=== PATIENT | female | born 1950 | race Caucasian/White ===

== ENCOUNTER 2018-11-18 04:26 | Observation (INO) | payer OTHER ==
--- OUTSIDE RECORDS SUMMARY | 2018-11-18 04:29 | XMS REPORT | Clinical Summary ---
:1950 Author Organization [facility] Address [address] [place] [address] Care Team Providers Name Role Phone Curt Jackson MD Primary Care Provider Allergies Active Allergy Reactions Severity Noted Date Comments Erythromycin 12/15/2017 Medications Not on file Active Problems Not on file Encounters Date Type Specialty Care Team Description 12/18/2017 Office Visit General Surgery Jim Bobby, Gastroesophageal reflux MD disease without esophagitis (Primary Dx) after 11/17/2017 Family History Medical History Relation Name Comments Breast cancer Mother Heart disease Mother Hypertension Mother Breast cancer Sister Crohn's disease Sister Relation Name Status Comments Mother Sister Social History Tobacco Use Types Packs/Day Years Used Date Former Smoker Smokeless Tobacco: Never Used Alcohol Use Drinks/Week oz/Week Comments Yes Sex Assigned at Date Recorded Not on file Job Start Date Occupation Industry Not on file Not on file Not on file Travel History Travel Start Travel End No recent travel history available. Last Filed Vital Signs Vital Sign Reading Time Taken Blood Pressure 127/69 12/18/2017 10:10 AM CDT Pulse 53 12/18/2017 10:10 AM CDT Temperature 36.7 C (98 F) 12/18/2017 10:10 AM CDT Respiratory Rate 16 12/18/2017 10:10 AM CDT Oxygen Saturation 98% 12/18/2017 10:10 AM CDT Inhaled Oxygen Concentration - - Weight 47.9 kg (105 lb 9.6 oz) 12/18/2017 10:10 AM CDT Height 154.9 cm (5' 1") 12/18/2017 10:10 AM CDT Body Mass Index 19.95 12/18/2017 10:10 AM CDT Plan of Treatment Health Maintenance Due Date Last Done Comments BREAST CANCER SCREENING 11/23/2001 COLON CANCER SCREENING 11/23/2001 SHINGLES VACCINES (#1) 11/23/2001 65+ PNEUMOCOCCAL VACCINE (1 of 2 - PCV13) 11/23/2016 PNEUMOCOCCAL POLYSACCHARIDE VACCINE AGE 65 AND OVER 11/23/2016 INFLUENZA VACCINE 02/07/2019 Results Not on fileafter 11/17/2017 Insurance Payer Benefit Plan / Group Subscriber ID Type Phone Address AETNA MEDICARE AETNA MEDICARE HMO/PPO [facility] xxxxxxxx HMO (Home) [facility] [phone] [place] [address] (Work) Advance Directives Patient has advance care planning documents on file. For more information, please contact:[id number] [facility] [address]
[2018-11-18 05:07] LABS: Absolute Lymphocytes (CBC) 2.5 K/uL (0.7-4.9); Absolute Monocytes 0.6 K/uL (0.1-1.3); Absolute Neutrophil 2.8 K/uL (1.8-8.0); Basophils % 1.6 % (0-1.3); Eosinophils % 4.6 % (0-4.4); Hematocrit 43.4 % (36.0-45.0); Monocytes % 9.3 % (3.3-12.3); RBC Red Blood Cell Count 4.93 M/uL (3.86-4.86)
[2018-11-18 05:09] LABS: Protime INR 0.95
[2018-11-18] MEDS ORDERED: ASPIRIN 81 MG CHEWABLE TABLET ONE (05:11)
[2018-11-18 05:26] LABS: ALT/SGPT 25 U/L (12-78); AST/SGOT 18 U/L (15-37); Albumin 4.1 g/dL (3.4-5.0); Alkaline Phosphatase 75 U/L (45-117); BUN Blood Urea Nitrogen 17 mg/dL (7-18); Bicarbonate 26 mmol/L (21-32); Bilirubin Direct 0.1 mg/dL (0-0.2); Bilirubin Total 0.6 mg/dL (0.2-1.0); Glucose Level 96 mg/dL (74-106); Magnesium 2.2 mg/dL (1.8-2.4); NT PRO-BNP 54 pg/mL (<125); Potassium 3.8 mmol/L (3.5-5.1); Protein, Total 7.2 g/dL (6.4-8.2); Sodium Level 143 mmol/L (136-145); Troponin (Emerg Dept Use Only) < 0.02 ng/mL (0.0-0.045)
--- NOTE | 2018-11-18 06:28 | ER ---
Nurse's Notes [facility] Name: Renee Paige Age: 67 yrs Sex: Female : 1950 Arrival Date: 11/18/2018 Time: 04:27 Bed 20 Private MD: Ang Jackson C Diagnosis: Chest pain, unspecified;Cardiac Dysryhtmia, Presentation: 11/18 04:30 Acuity: YON 3 fc 04:30 Presenting complaint: Patient states: that she was woken by left shoulder pain at 0400. fc Positive for nausea but denies any vomiting or shortness of breath. Transition of care: patient was not received from another setting of care. Onset of symptoms was November 18, 2018 at 04:00. Risk Assessment: Do you want to hurt yourself or someone else? Patient reports no desire to harm self or others. Initial Sepsis Screen: Does the patient meet any 2 criteria? No. Patient's initial sepsis screen is negative. Does the patient have a suspected source of infection? No. Patient's initial sepsis screen is negative. Care prior to arrival: Medication(s) given: ASA, 81 mg, x 1, at 0415. 04:30 Method Of Arrival: Ambulatory fc Historical: - Allergies: 04:47 Zithromax; fc - Home Meds: 04:47 amlodipine 2.5 mg tab 1 tab once daily [Active]; Lunesta 1 mg oral tab 0.5 tabs qhs prn fc [Active]; - PMHx: 04:47 Hypertension; hiatal hernia; fc - PSHx: 04:47 Hysterectomy; Tonsillectomy; fc - Immunization history:: Last tetanus immunization: unknown. - Social history:: Smoking status: Patient/guardian denies using tobacco, Patient uses alcohol, but reports only rare drinking. Patient/guardian denies using street drugs. - Ebola Screening: : Patient negative for fever greater than or equal to 101.5 degrees Fahrenheit, and additional compatible Ebola Virus Disease symptoms Patient denies exposure to infectious person Patient denies travel to an Ebola-affected area in the 21 days before illness onset. Screenin:30 Abuse screen: Denies threats or abuse. Nutritional screening: No deficits noted. fc Tuberculosis screening: No symptoms or risk factors identified. Fall Risk None identified. Assessment: 04:35 General: Appears in no apparent distress. comfortable, Behavior is calm, cooperative, rr5 appropriate for age. 04:35 Pain: Complains of pain in left shoulder Pain radiates to left arm Pain currently is 4 rr5 out of 10 on a pain scale. Quality of pain is described as aching, Pain began suddenly, Is intermittent. Neuro: Level of Consciousness is awake, alert, obeys commands, Oriented to person, place, time, situation, Appropriate for age. Cardiovascular: Reports left shoulder to left arm pain started at 0400H Capillary refill < 3 seconds Patient's skin is warm and dry. Respiratory: Airway is patent Respiratory effort is even, unlabored, Respiratory pattern is regular, symmetrical. GI: Abdomen is flat, Reports nausea. : No signs and/or symptoms were reported regarding the genitourinary system. EENT: No signs and/or symptoms were reported regarding the EENT system. Derm: Skin is intact, Skin temperature is warm. Musculoskeletal: Capillary refill < 3 seconds, Range of motion: intact in all extremities. 05:05 Reassessment: Patient appears in no apparent distress at this time. Patient is alert, rr5 oriented x 3, equal unlabored respirations, skin warm/dry/pink. Patient denies pain at this time. 06:05 Reassessment: Patient appears in no apparent distress at this time. Patient is alert, rr5 oriented x 3, equal unlabored respirations, skin warm/dry/pink. no complaints made awaiting for review. 06:59 Reassessment: Patient appears in no apparent distress at this time. Patient is alert, rr5 oriented x 3, equal unlabored respirations, skin warm/dry/pink. ED provider advised for admission and agreed for the plan of care. no complaints made. Patient denies pain at this time. Patient states feeling better. Patient states symptoms have improved. 07:22 Reassessment: Patient appears in no apparent distress at this time. Patient and/or em family updated on plan of care and expected duration. Pain level reassessed. Patient is alert, oriented x 3, equal unlabored respirations, skin warm/dry/pink. ordered heart healthy diet per protocol, notified household chores about room status, will assign room shortly. Vital Signs: 04:30 BP 154 / 91; Pulse 58; Resp 18; Temp 97.9(O); Pulse Ox 100% on R/A; Weight 48.99 kg fc (R); Height 5 ft. 2 in. (157.48 cm) (R); Pain 4/10; 05:00 BP 132 / 73; Pulse 60; Resp 17; Pulse Ox 99% on R/A; Pain 0/10; rr5 06:00 BP 135 / 77; Pulse 59; Resp 16; Pulse Ox 99% on R/A; rr5 06:40 BP 125 / 68; Pulse 61; Resp 13; Temp 97.9; Pulse Ox 99% on R/A; rr5 07:30 BP 123 / 59; Pulse 75; Resp 18; Pulse Ox 99% on R/A; Pain 0/10; em 04:30 Body Mass Index 19.75 (48.99 kg, 157.48 cm) ED Course: 04:27 Patient arrived in ED. am2 04:27 Ang Jackson MD is Private Physician. am2 04:30 Arm band placed on Patient placed in an exam room, on a stretcher. fc 04:30 Patient has correct armband on for positive identification. Placed in gown. Bed in low fc position. Call light in reach. gum rolling machine tender on. Pulse ox on. NIBP on. 04:30 No provider procedures requiring assistance completed. fc 04:34 Remy Mcmahan MD is Attending Physician. kdr 04:38 EKG done, by ED staff, reviewed by Remy Mcmahan MD. fc 04:42 Triage completed. fc 04:42 Adrián Friend, ELYSE is Primary Nurse. rr5 04:50 Inserted saline lock: 20 gauge in right antecubital area, using aseptic technique. rr5 Blood collected. 04:50 Initial lab(s) drawn, by or, sent to lab. Patient maintains SpO2 saturation greater rr5 than 95% on room air. 05:39 X-ray completed. Portable x-ray completed in exam room. Patient tolerated procedure mh1 well. 05:39 XRAY Chest (1 view) In Process Unspecified. EDMS 06:25 Elie Guo MD is Hospitalizing Provider. kdr 08:31 Patient admitted, IV remains in place. em Administered Medications: 05:01 Drug: Aspirin Chewable Tablet 243 mg Route: PO; rr5 06:58 Follow up: Response: No adverse reaction rr5 Outcome: 06:27 Decision to Hospitalize by Provider. kdr 08:31 Admitted to Tele accompanied by tech, via wheelchair, room 204, with chart, Report em called to ELYSE Loaiza 08:31 Condition: stable 08:31 Instructed on the need for admit, Demonstrated understanding of instructions. 08:34 Patient left the ED. em Signatures: Dispatcher [employer] Remy Kimball MD MD kdr Jhoana Hernandez 1 So Colmenares RN RN Jerome Amezcua LVN [employer] SPACE SALESPERSON Karina Zamora 2 Adrián Friend, RN RN rr5 Corrections: (The following items were deleted from the chart) 04:44 04:43 Abuse screen: Denies threats or abuse. Denies injuries from another. rr5 rr5 04:44 04:43 Nutritional screening: No deficits noted. rr5 rr5 04:44 04:43 Tuberculosis screening: No symptoms or risk factors identified. rr5 rr5 04:44 04:43 Fall Risk IV access (20 points). Total Cunha Fall Scale indicates No Risk (0-24 rr5 pts). rr5
--- NOTE | 2018-11-18 06:28 | EDPHYS ---
Physician Documentation [facility] Name: Renee Paige Age: 67 yrs Sex: Female : 1950 Arrival Date: 11/18/2018 Time: 04:27 Bed 20 Private MD: Ang Jackson C ED Physician Remy Mcmahan HPI: 11/18 04:51 This 67 yrs old Female presents to ER via Ambulatory with complaints of Chest kdr Pain > 30 y/o, Shoulder Pain. 04:51 The patient or guardian reports chest pain that is located primarily in the Left kdr shoulder and upper arm down to the elbow. Onset: suddenly, at 04:00. The pain radiates to the left shoulder. Associated signs and symptoms: Pertinent positives: nausea, Pertinent negatives: abdominal pain, cough, diaphoresis, shortness of breath, syncope. The chest pain is described as aching, burning, dull. Duration: The patient or guardian reports a single episode, that is now resolved. Modifying factors: The symptoms are alleviated by nothing. the symptoms are aggravated by nothing. Severity of pain: At its worst the pain was mild moderate just prior to arrival, in the emergency department the pain has resolved. The patient has not experienced similar symptoms in the past. 04:51 The patient has not recently seen a physician. kdr Historical: - Allergies: 04:47 Zithromax; fc - Home Meds: 04:47 amlodipine 2.5 mg tab 1 tab once daily [Active]; Lunesta 1 mg oral tab 0.5 tabs qhs prn fc [Active]; - PMHx: 04:47 Hypertension; hiatal hernia; fc - PSHx: 04:47 Hysterectomy; Tonsillectomy; fc - Immunization history:: Last tetanus immunization: unknown. - Social history:: Smoking status: Patient/guardian denies using tobacco, Patient uses alcohol, but reports only rare drinking. Patient/guardian denies using street drugs. - Ebola Screening: : Patient negative for fever greater than or equal to 101.5 degrees Fahrenheit, and additional compatible Ebola Virus Disease symptoms Patient denies exposure to infectious person Patient denies travel to an Ebola-affected area in the 21 days before illness onset. ROS: 04:51 Constitutional: Negative for fever, chills, and weight loss, Eyes: Negative for injury, kdr pain, redness, and discharge, ENT: Negative for injury, pain, and discharge, Neck: Negative for injury, pain, and swelling, Cardiovascular: Negative for chest pain, palpitations, and edema, Respiratory: Negative for shortness of breath, cough, wheezing, and pleuritic chest pain, Abdomen/GI: Negative for abdominal pain, nausea, vomiting, diarrhea, and constipation, Back: Negative for injury and pain, : Negative for injury, bleeding, discharge, and swelling, Skin: Negative for injury, rash, and discoloration, Neuro: Negative for headache, weakness, numbness, tingling, and seizure activity. Psych: Negative for depression, anxiety, suicide ideation, homicidal ideation, and hallucinations, Allergy/Immunology: Negative for hives, rash, and allergies, Endocrine: Negative for neck swelling, polydipsia, polyuria, polyphagia, and marked weight changes, Hematologic/Lymphatic: Negative for swollen nodes, abnormal bleeding, and unusual bruising. 04:51 MS/extremity: Positive for pain, warmth, of the anterior aspect of left shoulder, left bicep, posterior aspect of left shoulder and left tricep, Negative for acute changes, injury or acute deformity, abrasion, decreased range of motion, paresthesias. Exam: 04:51 Constitutional: This is a well developed, well nourished patient who is awake, alert, kdr and in no acute distress. Head/Face: Normocephalic, atraumatic. Eyes: Pupils equal round and reactive to light, extra-ocular motions intact. Lids and lashes normal. Conjunctiva and sclera are non-icteric and not injected. Cornea within normal limits. Periorbital areas with no swelling, redness, or edema. Neck: Trachea midline, no thyromegaly or masses palpated, and no cervical lymphadenopathy. Supple, full range of motion without nuchal rigidity, or vertebral point tenderness. No Meningismus. Chest/axilla: Normal chest wall appearance and motion. Nontender with no deformity. No lesions are appreciated. Respiratory: Lungs have equal breath sounds bilaterally, clear to auscultation and percussion. No rales, rhonchi or wheezes noted. No increased work of breathing, no retractions or nasal flaring. Abdomen/GI: Soft, non-tender, with normal bowel sounds. No distension or tympany. No guarding or rebound. No evidence of tenderness throughout. Back: No spinal tenderness. No costovertebral tenderness. Full range of motion. Skin: Warm, dry with normal turgor. Normal color with no rashes, no lesions, and no evidence of cellulitis. MS/ Extremity: Pulses equal, no cyanosis. Neurovascular intact. Full, normal range of motion. Neuro: Awake and alert, GCS 15, oriented to person, place, time, and situation. Cranial nerves II-XII grossly intact. Motor strength 5/5 in all extremities. Sensory grossly intact. Cerebellar exam normal. Normal gait. Psych: Awake, alert, with orientation to person, place and time. Behavior, mood, and affect are within normal limits. 04:51 Cardiovascular: Rate: bradycardic, Rhythm: irregular, Pulses: no pulse deficits are appreciated, Heart sounds: normal, Edema: is not appreciated, JVD: Vital Signs: 04:30 BP 154 / 91; Pulse 58; Resp 18; Temp 97.9(O); Pulse Ox 100% on R/A; Weight 48.99 kg fc (R); Height 5 ft. 2 in. (157.48 cm) (R); Pain 4/10; 05:00 BP 132 / 73; Pulse 60; Resp 17; Pulse Ox 99% on R/A; Pain 0/10; rr5 06:00 BP 135 / 77; Pulse 59; Resp 16; Pulse Ox 99% on R/A; rr5 06:40 BP 125 / 68; Pulse 61; Resp 13; Temp 97.9; Pulse Ox 99% on R/A; rr5 07:30 BP 123 / 59; Pulse 75; Resp 18; Pulse Ox 99% on R/A; Pain 0/10; em 04:30 Body Mass Index 19.75 (48.99 kg, 157.48 cm) MDM: 04:51 Data reviewed: vital signs, nurses notes. kdr 06:27 Patient medically screened. kdr 11/18 04:48 Order name: Basic Metabolic Panel; Complete Time: 05:54 fc 11/18 04:48 Order name: CBC with Diff; Complete Time: 05:54 11/18 04:48 Order name: LFT's; Complete Time: 05:54 11/18 04:48 Order name: Magnesium; Complete Time: 05:54 11/18 04:48 Order name: NT PRO-BNP; Complete Time: 05:54 11/18 04:48 Order name: PT-INR; Complete Time: 05:54 11/18 04:48 Order name: Troponin (emerg Dept Use Only); Complete Time: 05:54 11/18 06:35 Order name: Basic Metabolic Panel [facility] 11/18 06:35 Order name: Basic Metabolic Panel [facility] 11/18 06:35 Order name: CBC with Automated Diff [facility] 11/18 06:35 Order name: CBC with Automated Diff [facility] 11/18 06:35 Order name: Troponin I [facility] 11/18 06:35 Order name: Troponin I [facility] 11/18 06:35 Order name: Troponin I [facility] 11/18 04:48 Order name: XRAY Chest (1 view) 11/18 04:48 Order name: EKG; Complete Time: 04:49 11/18 04:48 Order name: Cardiac monitoring; Complete Time: 04:49 11/18 04:48 Order name: EKG - Nurse/Tech; Complete Time: 04:49 11/18 04:48 Order name: IV Saline Lock; Complete Time: 04:56 11/18 04:48 Order name: Labs collected and sent; Complete Time: 04:56 11/18 04:48 Order name: O2 Per Protocol; Complete Time: 04:56 11/18 04:48 Order name: O2 Sat Monitoring; Complete Time: 04:56 11/18 06:35 Order name: CONS Physician Consult [facility] 11/18 06:35 Order name: Regular [facility] 11/18 06:35 Order name: EKG Electrocardiogram [facility] 11/18 06:35 Order name: EKG Electrocardiogram [facility] 11/18 06:35 Order name: EKG Electrocardiogram [facility] 11/18 07:06 Order name: Diet Heart Healthy; Complete Time: 07:06 em Administered Medications: 05:01 Drug: Aspirin Chewable Tablet 243 mg Route: PO; rr5 06:58 Follow up: Response: No adverse reaction rr5 Disposition: 11/18/18 06:27 Hospitalization ordered by Elie Guo for Inpatient Admission. Preliminary diagnosis are Chest pain, unspecified, Cardiac Dysryhtmia,. - Bed requested for Telemetry/MedSurg (Inpatient). - Status is Inpatient Admission. em - Condition is Fair. - Problem is new. - Symptoms have improved. UTI on Admission? No Signatures: Dispatcher [employer] [facility] Meghana Rdoas, RN RN Remy Menchaca MD MD kdr Chretien, Felicia, RN RN Jerome Amezcua, PERSONAL COMPUTER NETWORK ANALYST PERSONAL COMPUTER NETWORK ANALYST em Adrián Friend, RN RN rr5 Corrections: (The following items were deleted from the chart) 07:59 06:27 Hospitalization Ordered by Elie Guo MD for Inpatient Admission. dw Preliminary diagnosis is Chest pain, unspecified; Cardiac Dysryhtmia,. Bed requested for Telemetry/MedSurg (Inpatient). Status is Inpatient Admission. Condition is Fair. Problem is new. Symptoms have improved. UTI on Admission? No. kdr 08:13 06:35 EKG Electrocardiogram ordered. [facility] 08:34 07:59 11/18/2018 06:27 Hospitalization Ordered by Elie Guo MD for Inpatient em Admission. Preliminary diagnosis is Chest pain, unspecified; Cardiac Dysryhtmia,. Bed requested for Telemetry/MedSurg (Inpatient). Status is Inpatient Admission. Condition is Fair. Problem is new. Symptoms have improved. UTI on Admission? No. dw
[2018-11-18] MEDS ORDERED: ACETAMINOPHEN 500 MG TAB PO PRN (06:31)
[2018-11-18] MEDS ORDERED: ONDANSETRON 4 MG/2 ML VIAL IV PRN (06:31)
--- NOTE | 2018-11-18 08:00 | RAD REPORT ---
EXAM DESCRIPTION: RAD - Chest Single View - 11/18/2018 5:39 am CLINICAL HISTORY: Shoulder pain, nausea, shortness of breath, hypertension COMPARISON: May 2015 TECHNIQUE: AP portable chest image was obtained 0536 hours . FINDINGS: Mild chronic interstitial lung pattern is present similar to comparison. No superimposed m ass, consolidation or failure finding. Heart and vasculature are normal. No measurable pleural effusi on and no pneumothorax. No acute bony abnormality seen. No acute aortic findings suspected. IMPRESSION: No acute cardiopulmonary process. No significant change from comparison.
[2018-11-18 08:42] VITALS: O2SAT 99
--- NOTE | 2018-11-18 08:46 | EKG ---
Test Date: 2018-11-18 Test Time: 04:38:52 Metal Tester: RR MEASUREMENT RESULTS: Intervals: Rate: 71 IN: 186 QRSD: 96 QT: 454 QTc: 493 [place]: P: 82 IN: 186 QRS: 59 T: 88 INTERPRETIVE STATEMENTS: Sinus rhythm with frequent premature ventricular complexes Incomplete right bundle branch block Nonspecific ST and T wave abnormality Prolonged QT Abnormal ECG Compared to ECG 01/19/2009 07:15:04 Ventricular premature complex(es) now present Incomplete right bundle-branch block now present ST (T wave) deviation now present Prolonged QT interval now present Sinus bradycardia no longer present Electronically Signed On 11-18-18 08:45:55 CDT by Gustabo Maldonado
[2018-11-18] MEDS ORDERED: ASPIRIN EC 81 MG TAB PO SCH (09:00)
[2018-11-18 09:08] VITALS: BP 146/71; TEMP 98; BMI 20.4
--- NOTE | 2018-11-18 14:35 | CON ---
Date of Consultation: 11/18/2018 The patient is admitted on 11/18/[address] Jackson. I saw the patient on 11/18/2018. Reason For Consultation: Atypical chest pain. History Of Present Illness: Ms. Paige is a 67-year-old woman. She is actually very healthy in [facility]. She has a history of hypertension, hiatal hernia. Has seen Dr. Manzo, my partner, in the past for palpitation and had an event monitor showing some PVCs. She apparently awoke with a left arm la teral chest pain from the shoulder all the way down to the hand without any numbness or tingling. Th ere was no vomiting, but she was nauseous. She got very anxious over it. She did not have any chest pain per se. Denied to have any shortness of breath. Denied any PND, orthopnea, pedal edema, palpi tations, or syncope. Had a stress test about a year ago which was normal. She was not really sure s he ever had an echocardiogram in the office. Past Medical History: Include hypertension and hiatal hernia. Medications: Include Norvasc and Lunesta. Review of Systems: Positive for excessive carbohydrates. No tobacco, drugs, or alcohol. Review of systems negative. Family History: Noncontributory. Physical Examination: General: On physical examination, she was pleasant, no acute distress. Vital Signs: Stable, afebrile. Sinus rhythm. HEENT: Negative. Neck: Supple. No bruit. Chest: Clear. Cardiac Exam: Normal. Abdomen: Benign. Extremities: Revealed no clubbing, cyanosis, or edema. Diagnostic Data: Her EKG showed sinus rhythm with occasional PVC. Chest x-ray was negative. Labora tory evaluations were negative. Impression And Plan: Atypical chest pain. I think her arm pain is mostly musculoskeletal. Certainl y could be related to cervical spondylosis or a localized nerve or bone issue. I doubt this is cardi ac. Her EKG is unremarkable. Her CPKs, MBs, and troponin are negative. She has a very low risk pro file. She had a negative stress test a year ago. I am comfortable with Ms. Paige going home. I wi ll make sure she come see us in the office in the next 2-4 weeks. I will check the office to see if she has had an echocardiogram, but I do not think she needs repeat stress test at this point. If she ever develops chest pain with her arm pain, she will let us know immediately. Her blood pressure is fairly well controlled. MARVA/PAMELA Voice ID: [id number] Report ID: [id number]
--- NOTE | 2018-11-18 21:05 | HP ---
Date of Admission: 11/18/2018 Chief Complaint: Left arm pain and palpitation. History Of Present Illness: This is a 67-year-old female patient, who was doing fine in her normal usual state of health until around 4 o'clock this morning. She woke up from her sleep with left arm pain. The pain remained in her left arm, did not move anywhere else and lasted for about maybe 5 minutes or so, and was associated with nausea. There was no vomiting. No diaphoresis. No shortness of breath. No chest pain. The patient took 1 aspirin and came into emergency room. After she was evaluated in the ER, she was admitted to the hospital. When I saw her this morning, she was still in the emergency room. Her pain has not returned after she came into emergency room. The patient also reports that in last 2 months, especially after eating, she has noted some palpitation type of feeling and she described that palpitation as heart beating harder than usual, but not heart racing feeling. She does not notice such problem after activity or with activity. She does not drink necessarily excessive amount of caffeine. Allergies: TO ZITHROMAX. Medications: List reviewed. Review of Systems: Cardiovascular: As mentioned above. All other systems reviewed and negative. Social History: Negative for smoking or alcohol use. Family History: Not pertinent. Past Surgical History: Hysterectomy, tonsillectomy. Past Medical History: Hypertension, hyperlipidemia, hypothyroidism, diverticulosis, osteoporosis and insomnia. Physical Examination: Vital Signs: When she first came to emergency room, blood pressure 154/91, pulse 58, respiratory rate 18, temperature 97.9, pulse ox 100%. Height 5 feet 2 inches. Weight 48.99 kg. General: Awake, alert, oriented, not in distress. HEENT: Head atraumatic, normocephalic. Conjunctivae nonerythematous. Sclerae white. Mouth, no thrush or edema noted. Ears/Nose, no mass, lesion, discharge noted. Neck: Supple. No JVD, lymph nodes, bruit, thyromegaly noted. Lungs: Bilateral good equal air entry. Clear to auscultation. No rhonchi. No rales. Heart: Normal heart sounds, no murmur or gallop. Abdomen: Soft, bowel sounds normal. No guarding, rigidity, tenderness, mass, hepatosplenomegaly, distention, or bruit noted. Extremities: No leg edema. No calf tenderness. Skin: No rash, ulcer, cellulitis. Lymphatics: No lymph node enlargement in neck, supraclavicular, infraclavicular region. Neuro: No focal neurological deficit. Chest: Unremarkable. External Genitalia: Deferred. Rectal: Deferred. Laboratory Data: White count 6.3, hemoglobin 14.6, platelets 277. Sodium 143, potassium 3.8, chloride 111, bicarb 26, BUN 17, creatinine 0.91, glucose 96. Liver function tests unremarkable. Troponin less than 0.02. EKG, sinus rhythm , frequent PVCs and chest x-ray was reported as no acute cardiopulmonary changes. Impression: 1. Palpitation. 2. Left arm pain. 3. Hypertension. 4. Insomnia, primary. 5. Hyperlipidemia. 6. Hypothyroidism. 7. Diverticulosis. 8. Osteoporosis. Plan: We will admit the patient to hospital for further evaluation and management of this problem to telemetry. Consult Cardiology. Get serial cardiac enzymes and monitor the patient for any cardiac arrhythmia. The patient will need further cardiac workup and depending on manager commodities's recommendation, we will decide if she should stay in the hospital to get further cardiac workup or might be able to go home later today and pursue further cardiac workup on outpatient basis with manager commodities. Details and plan of treatment discussed with the patient. GRETCHEN Voice ID: [id number] PETER
[2018-11-19] MEDS ORDERED: ASPIRIN EC 81 MG TAB PO SCH (09:00)
--- NOTE | 2018-11-20 05:37 | DS ---
Date of Discharge: 11/18/2018 Disposition: Discharged to go home. Physical Examination: See copy of yesterday's H and P dictation for details. Discharge Medication: Continue prior home medications. Followup: 1. Follow up at my office per scheduled appointment. 2. Follow up with clay miller, Dr. Maldonado, in 2-3 weeks per his recommendation. Hospital Course: A 67-year-old female patient admitted to the hospital after she presented to hospital with palpitations and left arm pain. Please see dictated H and P for more information. After the patient was admitted to the hospital, she was seen by clay miller, Dr. Maldonado, who evaluated her and recommended that the patient can be discharged to go home with outpatient cardiac workup. Medically, the patient was stable for discharge and Dr. Maldonado will pursue further cardiac workup at his office. The patient was instructed to continue all her prior home medications. Final Diagnoses: 1. Palpitation. 2. Left arm pain. 3. Hypertension. 4. Insomnia, primary. 5. Hyperlipidemia. 6. Hypothyroidism. 7. Diverticulosis. 8. Osteoporosis. JERSON/MODL Voice ID: [id number] Report ID: [id number] PETER
== END 2018-11-18 10:39 | disposition home or self-care (01) ==
LOC: ER 04:26 → 2ND 07:52 → INTOOBSV 07:52
PROVIDERS: ADMIT Internal Medicine; ATTEND Internal Medicine
DX: R00.2 Palpitations (principal); M79.602 Pain in left arm; I10 Essential (primary) hypertension; E78.5 Hyperlipidemia, unspecified; E03.9 Hypothyroidism, unspecified; K57.90 Diverticulosis of intestine, part unspecified, without perforation or abscess without bleeding; F51.01 Primary insomnia; M81.0 Age-related osteoporosis without current pathological fracture
CPT/HCPCS: 93005; 85025; 80048; 36415; 83735; 85610; 80076; 84484; 83880; 71045; 99285; G0378

== ENCOUNTER → 2020-06-15 | Day surgery (SDC) | payer OTHER ==
--- OUTSIDE RECORDS SUMMARY | 2020-06-15 11:36 | XMS REPORT | Clinical Summary ---
:1950 Author Organization [facility] Address [address] [place] [address] Care Team Providers Name Role Phone Curt Jackson MD Primary Care Provider Allergies Active Allergy Reactions Severity Noted Date Comments Erythromycin 12/15/2017 Medications Not on file Active Problems Not on file Surgical History Surgery Date Site/Laterality Comments HYSTERECTOMY Medical History Medical History Date Comments Anxiety Arthritis pain Insomnia Family History Medical History Relation Name Comments Breast cancer Mother Heart disease Mother Hypertension Mother Breast cancer Sister Crohn's disease Sister Relation Name Status Comments Mother Sister Social History Tobacco Use Types Packs/Day Years Used Date Former Smoker Smokeless Tobacco: Never Used Alcohol Use Drinks/Week oz/Week Comments Yes Sex Assigned at Date Recorded Not on file Last Filed Vital Signs Not on file Plan of Treatment Health Maintenance Due Date Last Done Comments BREAST CANCER SCREENING 11/23/2001 COLONOSCOPY SCREENING 11/23/2001 SHINGLES VACCINES (#1) 11/23/2001 65+ PNEUMOCOCCAL VACCINE (1 of 1 - PPSV23) 11/23/2016 INFLUENZA VACCINE 02/08/2020 Results Not on fileafter 06/15/2019 (Work) Advance Directives For more information, please contact: [phone] Type Date Recorded Patient Academic Coordinator Explanati on Advance Directives, Living Will and Medical Power of Grievance And Appeals Coordinator
--- OUTSIDE RECORDS SUMMARY | 2020-06-15 11:36 | XMS REPORT | Continuity of Care Document ---
:1950 Author Organization [facility] t Address [address] [place] [address] Care Team Providers Name Role Phone Janette Jackson MD Primary Care Physician SYSTEM, NOT IN Attending Clinician Unavailable Denise WILLOUGHBY Attending Clinician Payers Payer Name Policy Type Policy Effective Date Expiration Date Sour ce Number [employer]ET[employer] MEDICAREAETNA [id number] 2016 MD Carolann carmona MEDICARE 00:00:00 [id number] -PresentMedicare Problems This patient has no known problems. Allergies, Adverse Reactions, Alerts Allergy Allergy Status Severity Reaction(s) Onset Inactive Treating Comm ents Source Name Type Date Date Clinician Erythrom Propensi Active [place] [facility] ty to 12-15 Methodi adverse 00:00: st reaction 00 s to drug Family History Family Member Diagnosis Comments Start Date Stop Date Source Natural mother Breast cancer [place] [facility] Natural mother Heart disease [place] [facility] Natural mother Hypertension [place] [facility] Natural sister Breast cancer [place] [facility] Natural sister Crohn's disease [place] [facility] Social History Social Habit Start Date Stop Date Quantity Comments Source Sex Assigned At [facility] [place] [facility] Tobacco use and 2017-12-15 2017-12-15 Never used [facility] ethodist exposure 00:00:00 00:00:00 Alcohol intake 2017-12-15 2017-12-15 Current drinker [place] [facility] 00:00:00 00:00:00 of alcohol (finding) Smoking Status Start Date Stop Date Source Former smoker 2017-12-15 00:00:00 2017-12-15 00:00:00 [facility] Medications This patient has no known medications. Procedures This patient has no known procedures. Plan of Care Planned Activity Planned Date Details Comments Source Future Scheduled 2020-02-08 INFLUENZA VACCINE [place] [facility] Test 00:00:00 [code = INFLUENZA VACCINE] Future Scheduled 2016-11-23 65+ PNEUMOCOCCAL [place] [facility] Test 00:00:00 VACCINE (1 of 1 - PPSV23) [code = 65+ PNEUMOCOCCAL VACCINE (1 of 1 - PPSV23)] Future Scheduled 2001-11-23 BREAST CANCER [facility] Test 00:00:00 SCREENING [code = BREAST CANCER SCREENING] Future Scheduled 2001-11-23 COLONOSCOPY SCREENING [facility] Test 00:00:00 [code = COLONOSCOPY SCREENING] Future Scheduled 2001-11-23 SHINGLES VACCINES (#1) [facility] Test 00:00:00 [code = SHINGLES VACCINES (#1)] Encounters Start End Encounter Admission Attending Care Care Encounter Source Date/Time Date/Time Type Type Clinicians Facility Department ID 2020-06-02 Outpatient SYSTEM, [facility] KASHIF [id number] 12:25:05 PROVIDER Dwaynecharo mata Results This patient has no known results.
--- NOTE | 2020-06-15 12:05 | RAD REPORT ---
EXAM DESCRIPTION: US - Fine Needle Asp Breast Guide - 06/15/2020 11:08 am CLINICAL HISTORY: N63.20 COMPARISON: Follow Up Breast Axilla Comp dated 05/26/2020 FINDINGS: Preoperative diagnosis: Left breast lesion. Post operative diagnosis: Left breast cyst. Conscious Sedation: None Fluoroscopy time: None Contrast used: None Estimated blood loss: Minimal Specimens:1 mL cyst fluid. The left breast was prepped and draped in the usual sterile fashion. 1% lidocaine was infiltrated int o the subcutaneous tissues for local anesthesia. Real time ultrasound scanning of the left breast dem onstrated circumscribed hypoechoic 11 mm lesion 10 o'clock position left breast. Under ultrasound tiffani dance, an 18 gauge needle was advanced into the lesion. Aspiration yielded brownish 1 mL cyst fluid w ith complete collapse of the cyst. There were no complications. IMPRESSION: Successful ultrasound-guided FNA of left breast cyst.
== END ==
LOC: DS 09:54
PROVIDERS: ATTEND Clinical Nurse Specialist Women's Health
PROC: 0H9U3ZX Drainage of Left Breast, Percutaneous Approach, Diagnostic (ICD-10-PCS; principal; 2020-06-15)
DX: N60.02 Solitary cyst of left breast (principal)
CPT/HCPCS: 10005; 76942; 88162